=== PATIENT | male | born 1970 | race African-American/Black ===

== ENCOUNTER → 2016-09-08 | Outpatient (CLI) | payer MEDICAID ==
--- NOTE | 2016-09-08 12:38 | RADIOLOGY REPORT (SQ) ---
EXAM DESCRIPTION: CHEST PA/LATERAL COMPLETED DATE/TIME: 09/08/2016 12:30 pm REASON FOR STUDY: PRE-OP COMPARISON: None. EXAM PARAMETERS: NUMBER OF VIEWS: two views TECHNIQUE: Digital Frontal and Lateral radiographic views of the chest acquired. RADIATION DOSE: NA LIMITATIONS: none FINDINGS: LUNGS AND PLEURA: No opacities, masses or pneumothorax. No pleural effusion. MEDIASTINUM AND HILAR STRUCTURES: No masses or contour abnormalities. HEART AND VASCULAR STRUCTURES: Heart normal size. No evidence for failure. BONES: No acute findings. HARDWARE: None in the chest. OTHER: No other significant finding. IMPRESSION: NO SIGNIFICANT RADIOGRAPHIC FINDING IN THE CHEST. TECHNICAL DOCUMENTATION: JOB ID: [id number]- All Rights Reserved
[2016-09-08 12:51] LABS: ABSOLUTE EOSINOPHILS # (AUTO) 0.1 10^3/uL (0.0-0.6); ABSOLUTE MONOCYTES (AUTO) 0.5 10^3/uL (0.1-1.4); ABSOLUTE NEUT (AUTO) 2.9 10^3/uL (1.7-8.2); BASOPHILS % (AUTO) 0.5 % (0-2); HEMATOCRIT 43.6 % (37.9-51.0); HEMOGLOBIN 13.3 g/dL (13.5-17.0); HGB HCT DIFFERENCE -3.7; LYMPHOCYTES % (AUTO) 36.3 % (13-45); MEAN CORPUSCULAR HEMOGLOBIN 20.1 pg (27.0-33.4); MEAN CORPUSCULAR HGB CONC 30.5 g/dL (32.0-36.0); MEAN CORPUSCULAR VOLUME 66 fl (80-97); MONOCYTES % (AUTO) 8.4 % (3-13); RED BLOOD COUNT 6.61 10^6/uL (4.35-5.55); RED CELL DISTRIBUTION WIDTH 17.3 % (11.5-14.0); SEGMENTED NEUTROPHILS % (AUTO) 53.8 % (42-78); WHITE BLOOD COUNT 5.5 10^3/uL (4.0-10.5)
[2016-09-08 12:57] LABS: APPEARANCE,URINE CLEAR; BILIRUBIN,URINE NEGATIVE (NEGATIVE); GLUCOSE, URINE NEGATIVE (NEGATIVE); KETONES,URINE NEGATIVE (NEGATIVE); LEUKOCYTE ESTERASE,URINE NEGATIVE (NEGATIVE); NITRITE,URINE NEGATIVE (NEGATIVE); PROTEIN,URINE 30 mg/dL (NEGATIVE); URINE SPECIFIC GRAVITY 1.025; UROBILINOGEN,URINE NEGATIVE mg/dL (<2.0)
--- NOTE | 2016-09-09 12:16 | EKG REPORT ---
SEVERITY:- ABNORMAL ECG - SINUS RHYTHM FIRST DEGREE AV BLOCK BORDERLINE LEFT AXIS DEVIATION : Confirmed by: Alyse Germain MD 09-Sep-2016 12:15:25
[2016-09-09 13:53] LABS: ANION GAP 9 (5-19); BLOOD UREA NITROGEN 18 mg/dL (7-20); CALCIUM 9.3 mg/dL (8.4-10.2); CARBON DIOXIDE 26 mmol/L (22-30); CHLORIDE 106 mmol/L (98-107); CREATININE RESULT 1.12 mg/dL (0.52-1.25); GLUCOSE 122 mg/dL (75-110); POTASSIUM 4.3 mmol/L (3.6-5.0); SODIUM 141.1 mmol/L (137-145)
== END ==
LOC: OD 11:29
PROVIDERS: ATTEND Orthopaedic Surgery
DX: Z01.810 Encounter for preprocedural cardiovascular examination (principal); Z01.812 Encounter for preprocedural laboratory examination; Z01.818 Encounter for other preprocedural examination
CPT/HCPCS: 36415; 71020; 80048; 81001; 85025; 93005; 93010

== ENCOUNTER 2016-10-15 05:22 | Inpatient (IN) | payer MEDICAID ==
[2016-10-02 12:03] LABS: HEMOGLOBIN 14.6 g/dL (13.5-17.0); HGB HCT DIFFERENCE -3.2; MEAN CORPUSCULAR HEMOGLOBIN 20.4 pg (27.0-33.4); MEAN CORPUSCULAR HGB CONC 31.1 g/dL (32.0-36.0); MEAN CORPUSCULAR VOLUME 66 fl (80-97); RED BLOOD COUNT 7.16 10^6/uL (4.35-5.55); RED CELL DISTRIBUTION WIDTH 16.9 % (11.5-14.0); WHITE BLOOD COUNT 6.8 10^3/uL (4.0-10.5)
[2016-10-02 12:07] LABS: APPEARANCE,URINE CLEAR; BILIRUBIN,URINE NEGATIVE (NEGATIVE); GLUCOSE, URINE NEGATIVE (NEGATIVE); KETONES,URINE NEGATIVE (NEGATIVE); LEUKOCYTE ESTERASE,URINE NEGATIVE (NEGATIVE); NITRITE,URINE NEGATIVE (NEGATIVE); PROTEIN,URINE NEGATIVE (NEGATIVE); URINE SPECIFIC GRAVITY 1.023; UROBILINOGEN,URINE NEGATIVE mg/dL (<2.0)
[2016-10-02 12:09] LABS: ANION GAP 12 (5-19); BLOOD UREA NITROGEN 19 mg/dL (7-20); CALCIUM 9.6 mg/dL (8.4-10.2); CARBON DIOXIDE 26 mmol/L (22-30); CHLORIDE 105 mmol/L (98-107); CREATININE RESULT 1.27 mg/dL (0.52-1.25); GLUCOSE 100 mg/dL (75-110); POTASSIUM 4.4 mmol/L (3.6-5.0); SODIUM 143.3 mmol/L (137-145)
[~2016-10-15 05:22] MED LIST: BUPIVACAINE INJ/PF LIPOSOME/PF 266 MG/20 ML SDV IJ PRN; IBUPROFEN 800 MG/NS 250 ML IV PRN; LACTATED RINGERS 1000 ML IV PRN; VANCOMYCIN HCL 1,000 MG in DEXTROSE 5%-WATER 250 ML IV PRN
[2016-10-15] MEDS: SCOPOLAMINE HYDROBROMIDE 1.5 MG PATCH.TD72 TOP PRN ×3 (06:23→14:15)
[2016-10-15] MEDS: LANSOPRAZOLE 15 MG TAB.RAP.DR PO PRN ×4 (06:23→16:12)
[2016-10-15] MEDS: OXYCODONE HCL SR 10 MG TABLET PO PRN ×4 (06:23→16:13)
[2016-10-15] MEDS ORDERED: ONDANSETRON HCL INJ/PF 4 MG/2 ML SDV ONE (06:42)
[2016-10-15] MEDS ORDERED: FENTANYL CITRATE INJ/PF 250 MCG/5 ML AMPULE ONE (06:42)
[2016-10-15] MEDS ORDERED: MIDAZOLAM 2 MG/2 ML INJ ONE (06:42)
[2016-10-15] MEDS ORDERED: TRANEXAMIC ACID INJ/PF 1,000 MG/10 ML SDV IV ONE ×3 (06:43→10:00)
[2016-10-15] MEDS ORDERED: HYDROMORPHONE HCL INJ/PF 2 MG/ML AMPULE ONE (06:43)
[2016-10-15] MEDS ORDERED: PROPOFOL INJ 200 MG/20 ML VIAL IV ONE (06:43)
[2016-10-15] MEDS ORDERED: BUPIVACAINE INJ/PF LIPOSOME/PF 266 MG/20 ML SDV ONE (06:49)
[2016-10-15] MEDS ORDERED: THROMBIN (BOVINE) TOPICAL 20000 UNIT VIAL ONE (06:49)
[2016-10-15] MEDS ORDERED: THROMBIN (BOVINE) 5000 UNIT EPITAXIS KIT ONE (06:49)
[2016-10-15] MEDS ORDERED: MEPERIDINE HCL/PF INJ 25 MG/1 ML DISP.SYRIN IV PRN (07:29)
[2016-10-15] MEDS ORDERED: PROMETHAZINE HCL INJ 25 MG/1 ML VIAL IV PRN (07:29)
[2016-10-15] MEDS ORDERED: MORPHINE SULFATE 10 MG/ML INJ IV PRN (07:29)
[2016-10-15] MEDS ORDERED: FENTANYL CITRATE INJ/PF 100 MCG/2 ML AMPUL IV PRN ×3 (07:29)
[2016-10-15] MEDS ORDERED: DIPHENHYDRAMINE HCL 50 MG/ML VIAL IV PRN ×2 (07:29→08:35)
[2016-10-15] MEDS ORDERED: HYDROMORPHONE HCL INJ/PF 2 MG/ML AMPULE IV ONE (07:31)
[2016-10-15] MEDS ORDERED: MORPHINE SULFATE 10 MG/ML INJ IM PRN (08:35)
--- NOTE | 2016-10-15 08:35 | Operative Report ---
Operative Report DATE OF SURGERY: 10/15/16 PREOPERATIVE DIAGNOSIS: Right knee arthritis OPERATION: Knee arthroplasty SURGEON: NORMA MEDINA ANESTHESIA: GA TISSUE REMOVED OR ALTERED: Bone to pathology ESTIMATED BLOOD LOSS: 100 PROCEDURE: Implants used: Femur: Triathlon #6 CR femur Tibia: 6 tibia Tibial liner: 9 Millimeters CS insert Patella: 38 mm oval patella Procedure with the patient supine on the operating table the right the limb is prepped and draped in a sterile fashion. The limb was elevated for exsanguination and the tourniquet inflated to 280 torr. A standard midline median parapatellar approach the knee is taken. Access is gained to the femoral canal through the intercondylar notch. Intramedullary alignment instrumentation used to resect 10 mm of distal femur in 5 of valgus. Sizing guide indicated a size 6 femur. Appropriate cutting jig is then used to fashion anterior posterior and chamfer cuts. A trial reduction femurs performed and this is judged to be adequate. Attention was next turned to the tibia. Using an extra medullary alignment system 9 millimeters was resected off the lateral tibial plateau. This is sized to a size 6 tibia. A trial reduction was now performed with a 6 femur and a six tibia using a 9 millimeters spacer. It is full extension and central patellofemoral tracking. The articular surface the patella was next resected using an oscillating saw. All trial implants were removed. Polymethylmethacrylate is mixed and used to cement the above implants in place. On adequate curing the cement excess cement was removed the tourniquet was deflated hemostasis obtained the wound is then closed in layers using interrupted Vicryl followed by joyce. A sterile compressive dressing was applied and the patient returned to recovery room in satisfactory condition.
--- NOTE | 2016-10-15 09:34 | RADIOLOGY REPORT (SQ) ---
EXAM DESCRIPTION: KNEE RIGHT 2 VIEWS COMPLETED DATE/TIME: 10/15/2016 9:27 am REASON FOR STUDY: Post OP -Long Cassette in PACU M17.11 UNILATERAL PRIMARY OSTEOARTHRITIS, RIGHT KN EE COMPARISON: None. NUMBER OF VIEWS: Two view(s). TECHNIQUE: Digital radiographic images of the right knee post-procedure. LIMITATIONS: None. FINDINGS: BONES: No worrisome or unexpected findings post-procedure. DEVICE: Total knee arthroplasty SOFT TISSUES: No worrisome findings. Expected postoperative soft tissue changes. IMPRESSION: SATISFACTORY POSTOPERATIVE RIGHT KNEE. TECHNICAL DOCUMENTATION: JOB ID: [id number] [employer]- All Rights Reserved
[2016-10-15] MEDS ORDERED: ROCURONIUM BROMIDE INJ 50 MG/5 ML VIAL IV ONE (13:04)
[2016-10-15] MEDS ORDERED: SUCCINYLCHOLINE CHLORIDE INJ 200 MG/10 ML VIAL ONE (13:04)
[2016-10-15] MEDS: CEFAZOLIN INJ 1 GM VIAL INJ PRN ×4 (13:23→14:15)
[2016-10-15] MEDS: ACETAMINOPHEN 325 MG TABLET PO PRN (13:42)
[2016-10-15] MEDS: LIDOCAINE 0.5% INJ-PF (5 MG/ML) 50 ML SDV SUBCUT PRN ×2 (13:43→14:15)
[2016-10-15] MEDS: MORPHINE SULFATE 10 MG/ML INJ IV PRN ×7 (13:43→18:35)
[2016-10-15] MEDS: IBUPROFEN 800 MG in NORMAL SALINE 250 ML IV SCH ×2 (13:48→21:40)
[2016-10-15] MEDS: OXYCODONE HCL SR 10 MG TABLET PO SCH ×2 (13:49→21:40)
[2016-10-15] MEDS: ONDANSETRON 4 MG TAB.RAPDIS PO PRN (18:35)
[2016-10-15] MEDS: OXYCODONE HCL IR 5 MG TABLET PO PRN (20:13)
[2016-10-15] MEDS ORDERED: VANCOMYCIN HCL 1,000 MG in DEXTROSE 5%-WATER 250 ML IV ONE ×4 (20:35)
[2016-10-15] MEDS: RINGERS SOLUTION,LACTATED 1,000 ML IV PRN (21:40)
[2016-10-15] MEDS: RIVAROXABAN 10 MG TABLET PO SCH (21:40)
[2016-10-16] MEDS: OXYCODONE HCL IR 5 MG TABLET PO PRN ×3 (05:17→18:11)
[2016-10-16] MEDS: LANSOPRAZOLE 30 MG TAB.RAP.DR PO SCH (05:18)
[2016-10-16] MEDS: IBUPROFEN 800 MG in NORMAL SALINE 250 ML IV SCH ×3 (05:18→21:18)
[2016-10-16 05:46] LABS: HEMATOCRIT 37.3 % (37.9-51.0); HEMOGLOBIN 11.5 g/dL (13.5-17.0); HGB HCT DIFFERENCE -2.8; MEAN CORPUSCULAR HEMOGLOBIN 20.2 pg (27.0-33.4); MEAN CORPUSCULAR HGB CONC 30.8 g/dL (32.0-36.0); MEAN CORPUSCULAR VOLUME 65 fl (80-97); RED CELL DISTRIBUTION WIDTH 16.5 % (11.5-14.0); WHITE BLOOD COUNT 8.9 10^3/uL (4.0-10.5)
[2016-10-16 05:54] LABS: ANION GAP 10 (5-19); BLOOD UREA NITROGEN 12 mg/dL (7-20); CALCIUM 8.4 mg/dL (8.4-10.2); CARBON DIOXIDE 26 mmol/L (22-30); CHLORIDE 103 mmol/L (98-107); CREATININE RESULT 1.14 mg/dL (0.52-1.25); GLUCOSE 114 mg/dL (75-110); POTASSIUM 4.5 mmol/L (3.6-5.0); SODIUM 138.7 mmol/L (137-145)
[2016-10-16] MEDS ORDERED: (PENDING PHARMACY ID) (Lisinopril [Lisinopril] 20 MG) PO SCH (08:00)
[2016-10-16] MEDS: AMLODIPINE BESYLATE 5 MG TABLET PO SCH (09:56)
[2016-10-16] MEDS: OXYCODONE HCL SR 10 MG TABLET PO SCH ×2 (09:57→21:18)
[2016-10-16] MEDS: ONDANSETRON 4 MG TAB.RAPDIS PO PRN (09:57)
[2016-10-16] MEDS ORDERED: LISINOPRIL 10 MG TABLET PO SCH (10:00)
[2016-10-16] MEDS ORDERED: LISINOPRIL 10 MG TABLET PO ONE (10:30)
[2016-10-16] MEDS: ACETAMINOPHEN 325 MG TABLET PO PRN (10:59)
[2016-10-16] MEDS: RINGERS SOLUTION,LACTATED 1,000 ML IV PRN (12:53)
[2016-10-16] MEDS: RIVAROXABAN 10 MG TABLET PO SCH (21:18)
[2016-10-17 04:57] LABS: HEMATOCRIT 34.3 % (37.9-51.0); HEMOGLOBIN 10.5 g/dL (13.5-17.0); HGB HCT DIFFERENCE -2.8; MEAN CORPUSCULAR HEMOGLOBIN 20.1 pg (27.0-33.4); MEAN CORPUSCULAR HGB CONC 30.6 g/dL (32.0-36.0); MEAN CORPUSCULAR VOLUME 66 fl (80-97); RED BLOOD COUNT 5.23 10^6/uL (4.35-5.55); RED CELL DISTRIBUTION WIDTH 16.3 % (11.5-14.0); WHITE BLOOD COUNT 10.1 10^3/uL (4.0-10.5)
[2016-10-17] MEDS: IBUPROFEN 800 MG in NORMAL SALINE 250 ML IV SCH (05:36)
[2016-10-17] MEDS: LANSOPRAZOLE 30 MG TAB.RAP.DR PO SCH (05:37)
[2016-10-17] MEDS: OXYCODONE HCL IR 5 MG TABLET PO PRN (05:37)
--- NOTE | 2016-10-17 07:15 | PDOC DISCHARGE SUMMARY ---
General - Admit/Disc Date/PCP Admission Date/Primary Care Provider: 10/15/16 05:22 Discharge Date: 10/17/16 - Discharge Diagnosis (1) Arthritis of right knee Is this a current diagnosis for this admission?: Yes - Additional Information Resuscitation Status: Full Code Discharge Diet: As Tolerated, Regular Discharge Activity: Activity As Tolerated, No Driving, No tub bath Home Medications: Acetaminophen [Tylenol] 650 mg PO DAILY PRN 10/01/16 Amlodipine Besylate 5 mg PO QAM 10/01/16 Beclomethasone Dipropionate [Qvar] 1 - 2 inh IH BID PRN 10/01/16 Lisinopril 20 mg PO QAM 10/01/16 Oxycodone HCl [Oxy-Ir 5 mg Tablet] 5 mg PO Q6HP PRN #0 tablet 10/17/16 Rivaroxaban [Xarelto 10 mg Tablet] 10 mg PO QHS #0 tablet 10/17/16 History of Present Illness History of Present Illness: ANNETTE ALFONSO is a 46 year old male progressive right knee pain and dysfunction secondary osteoarthritis. He is admitted for elective right knee arthroplasty Hospital Course Hospital Course: Admitted through the operating room where he undergoes uncomplicated right knee arthroplasty. Is returned to the floor in satisfactory condition. He makes excellent progress with physical therapy ambulating 150 feet on postop day #1. His hematocrit remains above 34%. Dressing remains clean dry and intact. Physical Exam Vital Signs: Temp Pulse Resp BP Pulse Ox 36.9 C 95 19 115/80 96 10/16/16 23:33 10/16/16 23:33 10/16/16 23:33 10/16/16 23:33 10/16/16 23:33 Intake & Output 10/16/16 10/17/16 10/18/16 06:59 06:59 06:59 Intake Total 5380 2770 Output Total 3775 600 Balance 1605 2170 Weight 141.1 kg 140.2 kg General appearance: PRESENT: no acute distress Head exam: PRESENT: normocephalic Eye exam: PRESENT: EOMI Respiratory exam: PRESENT: unlabored Cardiovascular exam: PRESENT: RRR Pulses: PRESENT: +1 pedal pulses bilateral Vascular exam: PRESENT: normal capillary refill GI/Abdominal exam: PRESENT: soft Rectal exam: PRESENT: deferred Extremities exam: PRESENT: other - Knee picot dressing remains clean dry and intact. There is minimal pedal edema. Distal neurovascular examination is intact. Neurological exam: PRESENT: alert, awake, oriented to person, oriented to place , oriented to time, oriented to situation. ABSENT: motor sensory deficit Psychiatric exam: PRESENT: appropriate affect, normal mood. ABSENT: homicidal ideation, suicidal ideation Skin exam: PRESENT: dry, intact, warm. ABSENT: cyanosis, rash Results Laboratory Results: 10/17/16 04:30 10/16/16 05:20 10/17/16 04:30 WBC 10.1 RBC 5.23 Hgb 10.5 L Hct 34.3 L MCV 66 L MCH 20.1 L MCHC 30.6 L RDW 16.3 H Plt Count 183 Impressions: Knee X-Ray 10/15/16 08:36 IMPRESSION: SATISFACTORY POSTOPERATIVE RIGHT KNEE. Status: Imported from PACS Plan Discharge Plan: Be discharged home with home health nursing, home health physical therapy, wheeled walker, bedside commode. Visiting nurse service can change the right knee picot dressing on postop day 7 and replaced with an OpSite. Follow-up will be with Dr. Carranza and [facility] for surgery in 2 weeks for staple removal. Time Spent: Less than 30 Minutes
[2016-10-17] MEDS ORDERED: LISINOPRIL 10 MG TABLET PO SCH (08:00)
[2016-10-17 08:25] VITALS: BP 137/88
[2016-10-17] MEDS: AMLODIPINE BESYLATE 5 MG TABLET PO SCH (09:14)
[2016-10-17] MEDS: ACETAMINOPHEN 325 MG TABLET PO PRN (09:14)
== END 2016-10-17 11:00 | disposition home health service (06) | DRG 470 ==
LOC: INOR 05:22 → 4S 10:44
PROVIDERS: ADMIT Orthopaedic Surgery; ATTEND Orthopaedic Surgery
PROC: 0SRC0J9 Replacement of Right Knee Joint with Synthetic Substitute, Cemented, Open Approach (ICD-10-PCS; principal; 2016-10-15 07:15)
DX: M17.11 Unilateral primary osteoarthritis, right knee (principal); I10 Essential (primary) hypertension; J45.909 Unspecified asthma, uncomplicated; M54.5 Low back pain; G47.30 Sleep apnea, unspecified; Z80.3 Family history of malignant neoplasm of breast; Z80.0 Family history of malignant neoplasm of digestive organs
CPT/HCPCS: 01402; 36415; 80048; 81001; 85027; 88305; 88311; 94799; C1877; C2625; C9290; J0330; J0690; J1170; J1741; J2250; J2270; J2405; J2704; J3010; J3370; J3490; J7050; J7060; J7120; S0119

== ENCOUNTER → 2018-02-11 | Outpatient (CLI) | payer MEDICAID ==
[2018-02-11 10:42] LABS: ABSOLUTE LYMPHOCYTES (AUTO) 2.1 10^3/uL (0.5-4.7); ABSOLUTE MONOCYTES (AUTO) 0.6 10^3/uL (0.1-1.4); ABSOLUTE NEUT (AUTO) 2.5 10^3/uL (1.7-8.2); BASOPHILS % (AUTO) 0.4 % (0-2); EOSINOPHILS % (AUTO) 0.8 % (0-6); HEMATOCRIT 43.3 % (37.9-51.0); HEMOGLOBIN 13.6 g/dL (13.5-17.0); LYMPHOCYTES % (AUTO) 40.4 % (13-45); MEAN CORPUSCULAR HEMOGLOBIN 20.6 pg (27.0-33.4); MEAN CORPUSCULAR HGB CONC 31.4 g/dL (32.0-36.0); MEAN CORPUSCULAR VOLUME 66 fl (80-97); MONOCYTES % (AUTO) 11.9 % (3-13); PLATELET COUNT 243 10^3/uL (150-450); RED CELL DISTRIBUTION WIDTH 17.2 % (11.5-14.0); SEGMENTED NEUTROPHILS % (AUTO) 46.5 % (42-78); TOTAL CELLS COUNTED % (AUTO) 100 %; WHITE BLOOD COUNT 5.3 10^3/uL (4.0-10.5)
[2018-02-11 10:58] LABS: ANION GAP 10 (5-19); BLOOD UREA NITROGEN 14 mg/dL (7-20); C-REACTIVE PROTEIN 17.8 mg/L (<10.0); CALCIUM 9.7 mg/dL (8.4-10.2); CARBON DIOXIDE 30 mmol/L (22-30); CHLORIDE 104 mmol/L (98-107); GLUCOSE 93 mg/dL (75-110); POTASSIUM 4.1 mmol/L (3.6-5.0); SODIUM 144.1 mmol/L (137-145)
[2018-02-11 11:36] LABS: ERYTHROCYTE SEDIMENTATION RATE 11 mm/hr (0-15)
== END ==
LOC: OD 09:54
PROVIDERS: ATTEND Orthopaedic Surgery
DX: M25.561 Pain in right knee (principal)
CPT/HCPCS: 36415; 80048; 85025; 85652; 86140

== ENCOUNTER → 2018-09-13 | Outpatient (CLI) | payer MEDICAID ==
--- NOTE | 2018-09-13 16:57 | RADIOLOGY REPORT (SQ) ---
EXAM DESCRIPTION: CHEST PA/LATERAL COMPLETED DATE/TIME: 09/13/2018 4:43 pm REASON FOR STUDY: PRE-OP COMPARISON: 09/08/2016. EXAM PARAMETERS: NUMBER OF VIEWS: two views TECHNIQUE: Digital Frontal and Lateral radiographic views of the chest acquired. RADIATION DOSE: NA LIMITATIONS: none FINDINGS: LUNGS AND PLEURA: No opacities, masses or pneumothorax. No pleural effusion. MEDIASTINUM AND HILAR STRUCTURES: No masses or contour abnormalities. HEART AND VASCULAR STRUCTURES: Heart normal size. No evidence for failure. BONES: No acute findings. HARDWARE: None in the chest. OTHER: No other significant finding. IMPRESSION: NO SIGNIFICANT RADIOGRAPHIC FINDING IN THE CHEST. TECHNICAL DOCUMENTATION: JOB ID: [id number] [employer]- All Rights Reserved Reading location - IP/workstation name: [email or web address]
[2018-09-13 18:01] LABS: ABSOLUTE EOSINOPHILS # (AUTO) 0.1 10^3/uL (0.0-0.6); ABSOLUTE LYMPHOCYTES (AUTO) 2.8 10^3/uL (0.5-4.7); ABSOLUTE MONOCYTES (AUTO) 0.6 10^3/uL (0.1-1.4); ABSOLUTE NEUT (AUTO) 3.1 10^3/uL (1.7-8.2); BASOPHILS % (AUTO) 0.4 % (0-2); EOSINOPHILS % (AUTO) 1.7 % (0-6); HEMOGLOBIN 13.2 g/dL (13.5-17.0); LYMPHOCYTES % (AUTO) 42.6 % (13-45); MEAN CORPUSCULAR HEMOGLOBIN 20.2 pg (27.0-33.4); MEAN CORPUSCULAR HGB CONC 30.8 g/dL (32.0-36.0); MEAN CORPUSCULAR VOLUME 66 fl (80-97); MONOCYTES % (AUTO) 8.7 % (3-13); PLATELET COUNT 294 10^3/uL (150-450); RED BLOOD COUNT 6.55 10^6/uL (4.35-5.55); RED CELL DISTRIBUTION WIDTH 16.9 % (11.5-14.0); SEGMENTED NEUTROPHILS % (AUTO) 46.6 % (42-78); TOTAL CELLS COUNTED % (AUTO) 100 %; WHITE BLOOD COUNT 6.7 10^3/uL (4.0-10.5)
[2018-09-13 18:02] LABS: APPEARANCE,URINE CLEAR; BILIRUBIN,URINE NEGATIVE (NEGATIVE); COLOR,URINE YELLOW; GLUCOSE, URINE NEGATIVE (NEGATIVE); KETONES,URINE NEGATIVE (NEGATIVE); LEUKOCYTE ESTERASE,URINE NEGATIVE (NEGATIVE); NITRITE,URINE NEGATIVE (NEGATIVE); PROTEIN,URINE NEGATIVE (NEGATIVE); URINE SPECIFIC GRAVITY 1.019; UROBILINOGEN,URINE NEGATIVE mg/dL (<2.0)
[2018-09-13 18:29] LABS: ANION GAP 11 (5-19); BLOOD UREA NITROGEN 21 mg/dL (7-20); C-REACTIVE PROTEIN 14.8 mg/L (<10.0); CALCIUM 9.6 mg/dL (8.4-10.2); CARBON DIOXIDE 29 mmol/L (22-30); CHLORIDE 103 mmol/L (98-107); GLUCOSE 132 mg/dL (75-110); POTASSIUM 3.9 mmol/L (3.6-5.0)
[2018-09-13 18:51] LABS: ERYTHROCYTE SEDIMENTATION RATE 11 mm/hr (0-15)
--- NOTE | 2018-09-13 20:15 | EKG REPORT ---
SEVERITY:- ABNORMAL ECG - SINUS RHYTHM NONSPECIFIC IVCD WITH LAD : Confirmed by: Rodo Watkins MD 13-Sep-2018 20:13:48
== END ==
LOC: OD 15:54
PROVIDERS: ATTEND Orthopaedic Surgery
DX: Z01.810 Encounter for preprocedural cardiovascular examination (principal); Z01.811 Encounter for preprocedural respiratory examination; Z01.812 Encounter for preprocedural laboratory examination; I10 Essential (primary) hypertension
CPT/HCPCS: 36415; 71046; 80048; 81001; 85025; 85652; 86140; 93005; 93010

== ENCOUNTER 2018-10-11 07:35 | Inpatient (IN) | payer MEDICAID ==
[~2018-10-11 07:35] MED LIST changes: -BUPIVACAINE INJ/PF LIPOSOME/PF 266 MG/20 ML SDV IJ PRN; +BUPIVACAINE INJ/PF LIPOSOME/PF 266 MG/20 ML SDV INJ PRN; +CEFAZOLIN INJ 1 GM VIAL IV PRN; +IBUPROFEN 800 MG in NORMAL SALINE 250 ML IV PRN; -IBUPROFEN 800 MG/NS 250 ML IV PRN; +LIDOCAINE 0.5% INJ-PF (5 MG/ML) 50 ML SDV SUBCUT PRN; +OXYCODONE HCL SR 10 MG TABLET PO PRN; +PANTOPRAZOLE SODIUM 20 MG TABLET.DR PO PRN
[2018-10-11] MEDS ORDERED: OXYCODONE HCL SR 10 MG TABLET PO ONE (08:27)
[2018-10-11] MEDS ORDERED: CEFAZOLIN 1 GM/D5W RTU 1 GM/50 ML RTUPB IV ONE (08:27)
[2018-10-11] MEDS ORDERED: PANTOPRAZOLE SODIUM 20 MG TABLET.DR PO ONE (08:29)
[2018-10-11] MEDS ORDERED: THROMBIN (BOVINE) TOPICAL 20000 UNIT VIAL ONE ×2 (08:48→10:22)
[2018-10-11] MEDS ORDERED: BUPIVACAINE HCL 0.25% /EPINEPHRINE INJ/PF 30 ML SDV ONE ×2 (08:48→10:21)
[2018-10-11] MEDS ORDERED: ONDANSETRON HCL INJ/PF 4 MG/2 ML SDV ONE (10:16)
[2018-10-11] MEDS ORDERED: MIDAZOLAM 2 MG/2 ML INJ ONE (10:16)
[2018-10-11] MEDS ORDERED: FENTANYL CITRATE INJ/PF 100 MCG/2 ML AMPUL ONE (10:16)
[2018-10-11] MEDS ORDERED: PROPOFOL INJ 200 MG/20 ML VIAL IV ONE (10:16)
[2018-10-11] MEDS ORDERED: DEXAMETHASONE SOD PHOSPHATE INJ 4 MG/1 ML VIAL ONE (10:16)
[2018-10-11] MEDS ORDERED: VANCOMYCIN HCL INJ 1000 MG VIAL ONE (10:48)
[2018-10-11] MEDS ORDERED: EPINEPHRINE INJ/PF 1 MG/1 ML AMPULE ONE (11:09)
[2018-10-11] MEDS ORDERED: TRANEXAMIC ACID INJ/PF 1,000 MG/10 ML SDV IV ONE ×2 (11:29→15:00)
[2018-10-11] MEDS ORDERED: DIPHENHYDRAMINE HCL 50 MG/ML VIAL IV PRN ×2 (11:40→13:02)
[2018-10-11] MEDS ORDERED: ONDANSETRON HCL INJ/PF 4 MG/2 ML SDV IV PRN ×2 (11:40→13:02)
[2018-10-11] MEDS ORDERED: MORPHINE SULFATE 10 MG/ML INJ IV PRN ×2 (11:40→13:02)
[2018-10-11] MEDS ORDERED: FENTANYL CITRATE INJ/PF 100 MCG/2 ML AMPUL IV PRN ×3 (11:40)
[2018-10-11] MEDS ORDERED: PROMETHAZINE HCL INJ 25 MG/1 ML VIAL IV PRN ×2 (11:40)
[2018-10-11] MEDS ORDERED: MEPERIDINE HCL/PF INJ 25 MG/1 ML DISP.SYRIN IV PRN (11:40)
--- NOTE | 2018-10-11 13:01 | Operative Report ---
Operative Report DATE OF SURGERY: 10/11/18 PREOPERATIVE DIAGNOSIS: Mechanical instability right total knee arthroplasty OPERATION: Revision knee arthroplasty SURGEON: NORMA MEDINA ANESTHESIA: Spinal TISSUE REMOVED OR ALTERED: Cultures to microbiology. Implants to CSS ESTIMATED BLOOD LOSS: 100 PROCEDURE: Implants used: Size 6 Buffy TS femoral implant with a 17 x 100 stem Size 5 tibial implant, with a 16 x 100 stem Size 5 x 16 mm TS insert With the patient supine and operative table right lower extremities prepped and draped in sterile fashion. The limb is elevated for exsanguination tourniquet inflated 280 torr. The knee is examined and there is a instability varus stress. There seems to be a definite endpoint. Does lead to a mechanical malalignment of the lower extremity with a varus deformity. The knee is then opened through a median parapatellar approach. Examination of the plastic reveals that there is some plastic wear that may contribute to the instability but I think another part of it has to be lateral collateral structures. Therefore decision was made to revise the entire knee and replace it with a constrained device. No detectable wear on the patella and there is a decision made to leave this in place. The femoral component was removed using a TPS saw with essentially no bone loss. Likewise the tibial component was removed with essentially no bone loss using a TPS saw and a stacked osteotome approach. The tibia was prepared using series of cylindrical reamers until cortical metadiaphyseal bone is reached. Is then used to resect the proximal tibia, possibly 1 to 2 mm to prepare a fresh cut. Likewise the femur is prepared using a series of cylindrical reamers to refresh the cut as well as to cut out the posterior stabilized box. A trial reduction was performed with the above implants and this provides excellent ability in a range of motion of 0 to 120 degrees. There is no evidence of any varus instability at this point. Trial implants were removed. The cancellus surfaces keenan air with pulse lavage. Polymethylmethacrylate with tobramycin was mixed and used to cement the above implants in place. Adequate curing the cement excess cement was removed. The final 16 mm spacer was impacted. The wound is closed in layers with interrupted Vicryl followed by joyce. A sterile compressive dressing was ap plied and the patient's return to the PACU in satisfactory condition.
[2018-10-11] MEDS ORDERED: RINGERS SOLUTION,LACTATED 1,000 ML IV PRN (13:02)
[2018-10-11] MEDS ORDERED: ACETAMINOPHEN 325 MG TABLET PO PRN (13:02)
[2018-10-11] MEDS ORDERED: ZOLPIDEM TARTRATE 5 MG TABLET PO PRN (13:02)
[2018-10-11] MEDS ORDERED: OXYCODONE HCL IR 5 MG TABLET PO PRN (13:02)
[2018-10-11] MEDS ORDERED: ONDANSETRON 4 MG TAB.RAPDIS PO PRN ×2 (13:02→14:00)
[2018-10-11] MEDS ORDERED: MAG HYDROX/AL HYDROX/SIMETH SUSP 30 ML UDCUP PO PRN ×2 (13:02→14:00)
--- NOTE | 2018-10-11 14:05 | RADIOLOGY REPORT (SQ) ---
EXAM DESCRIPTION: KNEE RIGHT 2 VIEWS COMPLETED DATE/TIME: 10/11/2018 1:39 pm REASON FOR STUDY: Post OP -Long Cassette in PACU T84.418A [id number] INTERNAL ORTH DEVICES, IMPLANTS AN D GRAFTS, COMPARISON: None. NUMBER OF VIEWS: Two views. TECHNIQUE: AP, lateral, and both oblique radiographic images acquired of the right knee. LIMITATIONS: None. FINDINGS: The patient is status post right knee hinged total arthroplasty. No evidence of perihardw are fracture. Expected postoperative findings in the soft tissues. IMPRESSION: NEGATIVE STUDY OF THE RIGHT KNEE. NO RADIOGRAPHIC EVIDENCE OF ACUTE INJURY. TECHNICAL DOCUMENTATION: JOB ID: [id number] [employer]- All Rights Reserved Reading location - IP/workstation name: [email or web address]
[2018-10-11] MEDS: ONDANSETRON HCL INJ/PF 4 MG/2 ML SDV IV PRN (15:11)
[2018-10-11] MEDS: IBUPROFEN 800 MG in NORMAL SALINE 250 ML IV SCH (17:16)
[2018-10-11] MEDS: SENNOSIDES/DOCUSATE 8.6-50 MG 1 EACH TABLET PO SCH (17:16)
[2018-10-11] MEDS: OXYCODONE HCL SR 10 MG TABLET PO SCH (21:28)
[2018-10-12] MEDS ORDERED: VANCOMYCIN HCL 1,000 MG in DEXTROSE 5%-WATER 250 ML IV ONE (01:00)
[2018-10-12] MEDS: IBUPROFEN 800 MG in NORMAL SALINE 250 ML IV SCH ×2 (01:51→09:53)
[2018-10-12] MEDS ORDERED: PANTOPRAZOLE SODIUM 40 MG TABLET.DR PO SCH (06:00)
--- NOTE | 2018-10-12 07:12 | PDOC DISCHARGE SUMMARY ---
General - Admit/Disc Date/PCP Admission Date/Primary Care Provider: 10/11/18 07:35 RAJ GARCES, Discharge Date: 10/12/18 - Discharge Diagnosis (1) Mechanical complication associated with orthopedic device Is this a current diagnosis for this admission?: Yes - Additional Information Resuscitation Status: Full Code Home Medications: Lisinopril/Hydrochlorothiazide [Lisinopril-Hctz 20-12.5 mg Tab] 1 tab PO DAILY 09/22/18 Acetaminophen [Tylenol] 650 mg PO PRN PRN 10/11/18 Amlodipine Besylate [Norvasc 10 mg Tablet] 10 mg PO DAILY 10/11/18 Beclomethasone Dipropionate [Qvar] 1 - 2 puff IH PRN PRN 10/11/18 History of Present Illness History of Present Illness: ANNETTE ALFONSO is a 48 year old male Patient is a 48-year-old black male status post right knee arthroplasty in 2017 with progressive varus instability. Patient admitted for elective revision knee arthroplasty. Hospital Course Hospital Course: Patient is admitted through the operating where he undergoes uncomplicated right knee revision arthroplasty. He is returned to floor in satisfactory. He ambulates 65 feet on the day of surgery and then for further on his own later in the evening. Compressive dressing is changed on the first postoperative morning. Wound is well approximated joyce clean dry and intact. Minimal pedal edema. Distal neurovascular examination is intact. Physical Exam Vital Signs: Temp Pulse Resp BP Pulse Ox 36.6 C 75 17 140/67 H 96 10/12/18 01:00 10/12/18 01:00 10/12/18 01:00 10/12/18 01:00 10/12/18 04:04 Pulse Oximeter Continuous Start: 10/11/18 14:18 Freq: RTQ4 Status: Active Protocol: Document 10/12/18 04:04 TIFFANY (Rec: 10/12/18 04:04 TIFFANY [id number]) Pulse Oximetry Assessment Oxygen Saturation (92-100) 96 Oxygen Delivery Method Room Air Fraction of Inspired Oxygen (FIO2) 21 Equipment Usage Equipment in Use Continuous SpO2 Machine # 7 Intake & Output 10/11/18 10/12/18 10/13/18 06:59 06:59 06:59 Intake Total 7109 Output Total 675 Balance 6434 Physical Exam: Overweight middle-aged black male lying comfortably in bed using CPAP. is in the recliner next to him. General appearance: PRESENT: no acute distress, mild distress, well-developed, well-nourished Respiratory exam: PRESENT: unlabored Cardiovascular exam: PRESENT: RRR Pulses: PRESENT: +1 pedal pulses bilateral Vascular exam: PRESENT: normal capillary refill GI/Abdominal exam: PRESENT: soft Rectal exam: PRESENT: deferred Extremities exam: PRESENT: other - Right knee dressing change. Wound is well approximated joyce. Wound is clean dry and intact. Minimal pedal edema. Distal neurovascular examination is intact. Neurological exam: PRESENT: alert, awake, oriented to person, oriented to place, oriented to time, oriented to situation, CN II-XII grossly intact. ABSENT: motor sensory deficit Psychiatric exam: PRESENT: appropriate affect, normal mood. ABSENT: homicidal ideation, suicidal ideation Skin exam: PRESENT: dry, intact, warm. ABSENT: cyanosis, rash Results Laboratory Results: 10/11/18 08:47 10/11/18 08:47 Potassium 4.0 Impressions: Knee X-Ray 10/11/18 13:03 IMPRESSION: NEGATIVE STUDY OF THE RIGHT KNEE. NO RADIOGRAPHIC EVIDENCE OF ACUTE INJURY. Status: Imported from PACS Qualifiers - * PATIENT BEING DISCHARGED WITH ANY OF THE FOLLOWING DIAGNOSIS: No VTE patient discharged on overlapping Therapy?: Yes Acute Heart Failure - Is this a Heart Failure Patient?: No Plan Discharge Plan: Patient to be discharged home with home health services and DME. Follow-up with Dr. Carranza and [facility] for surgery in 2 weeks for staple removal. Time Spent: Less than 30 Minutes
[2018-10-12 07:34] LABS: HEMATOCRIT 36.8 % (37.9-51.0); HEMOGLOBIN 11.3 g/dL (13.5-17.0); MEAN CORPUSCULAR HGB CONC 30.7 g/dL (32.0-36.0); MEAN CORPUSCULAR VOLUME 65 fl (80-97); PLATELET COUNT 223 10^3/uL (150-450); RED BLOOD COUNT 5.64 10^6/uL (4.35-5.55); RED CELL DISTRIBUTION WIDTH 17.1 % (11.5-14.0); WHITE BLOOD COUNT 11.3 10^3/uL (4.0-10.5)
[2018-10-12] MEDS: ONDANSETRON HCL INJ/PF 4 MG/2 ML SDV IV PRN (07:39)
[2018-10-12] MEDS: SENNOSIDES/DOCUSATE 8.6-50 MG 1 EACH TABLET PO SCH (09:53)
[2018-10-12] MEDS: OXYCODONE HCL SR 10 MG TABLET PO SCH (09:54)
[2018-10-12] MEDS ORDERED: (PENDING PHARMACY ID) (Lisinopril/Hydrochlorothiazide [Lisinopril-Hctz 20-12.5 Mg Tab] 1 T PO SCH (10:00)
[2018-10-12] MEDS ORDERED: PRENATAL VITAMIN W DHA CAPSULE PO SCH (10:00)
[2018-10-12] MEDS ORDERED: AMLODIPINE BESYLATE 10 MG TABLET PO SCH (10:00)
[2018-10-12] MEDS ORDERED: ASPIRIN 81 MG TABLET, ENT COATED PO SCH (10:00)
[2018-10-12] MEDS ORDERED: LISINOPRIL 10 MG TABLET PO SCH (10:00)
[2018-10-12] MEDS ORDERED: HYDROCHLOROTHIAZIDE 12.5 MG TABLET PO SCH (10:00)
[2018-10-12 10:08] LABS: ANION GAP 7 (5-19); BLOOD UREA NITROGEN 18 mg/dL (7-20); CALCIUM 8.5 mg/dL (8.4-10.2); CARBON DIOXIDE 27 mmol/L (22-30); CHLORIDE 104 mmol/L (98-107); GLUCOSE 117 mg/dL (75-110); POTASSIUM 4.2 mmol/L (3.6-5.0); SODIUM 137.5 mmol/L (137-145)
[2018-10-12 11:30] VITALS: BP 140/67
== END 2018-10-12 12:15 | disposition home health service (06) | DRG 468 ==
LOC: INOR 07:35 → 4N 14:09
PROVIDERS: ADMIT Orthopaedic Surgery; ATTEND Orthopaedic Surgery
PROC: 0SRC0J9 Replacement of Right Knee Joint with Synthetic Substitute, Cemented, Open Approach (ICD-10-PCS; 2018-10-11)
PROC: 0SPC0JZ Removal of Synthetic Substitute from Right Knee Joint, Open Approach (ICD-10-PCS; principal; 2018-10-11 10:00)
DX: T84.418A Breakdown (mechanical) of other internal orthopedic devices, implants and grafts, initial encounter (principal); J45.909 Unspecified asthma, uncomplicated; E66.3 Overweight; Y83.1 Surgical operation with implant of artificial internal device as the cause of abnormal reaction of the patient, or of later complication, without mention of misadventure at the time of the procedure
CPT/HCPCS: 36415; 80048; 84132; 85027; 87070; 87075; 87205; 94762; 94799; J0171; J0690; J1100; J1741; J2250; J2270; J2405; J2704; J3010; J3370; J3490; J7050; J7060; J7120; S0119